=== PATIENT | female | born 1975 | race Asian ===

== ENCOUNTER 2022-11-18 16:10 | Emergency (ER) | payer OTHER ==
[~2022-11-18] VITALS: Ht 170.2 cm; Wt 68.0 kg
[2022-11-18 17:00] VITALS: RESP 20
--- NOTE | 2022-11-18 17:00 | NUR ---
Patient was assisting RN and two other students help with ICU patient. MD was inserting central line and student's instructor was assisting in hubbing line after insertion and MD's sharps were still on the tray when RN Instructor hit the used transducer that was still on the tray.
--- NOTE | 2022-11-18 18:00 | NUR ---
Patient went to lab to have blood drawn and lab came to draw source patient.
--- NOTE | 2022-11-18 18:15 | NUR ---
Patient met with MD to discuss plan and outcome. 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 MD advised patient what to do if results were positive or negative.
--- NOTE | 2022-11-18 19:00 | NUR ---
Sp[place]ke with patient again prior to her leaving for the day. If hospital needs to contact patient, they may reach her at [phone].
--- NOTE | 2022-11-18 19:15 | NUR ---
Patient given written and verbal discharge instructions and verbalizes understanding. ER MD discussed with patient the results and treatment provided. Patient in stable condition. Opportunity for questions provided and answered.
[2022-11-21 03:06] LABS: HEPATITIS A AB, IgM Negative (Negative); HEPATITIS B CORE AB, IgM Negative (Negative); HEPATITIS B SURFACE AG Negative (Negative)
== END 2022-11-18 19:15 | disposition home or self-care (01) ==
LOC: SED 16:10
DX: S61.230A Puncture wound without foreign body of right index finger without damage to nail, initial encounter (principal); Z79.899 Other long term (current) drug therapy; W46.0XXA Contact with hypodermic needle, initial encounter; Y93.89 Activity, other specified; Y92.89 Other specified places as the place of occurrence of the external cause; Y99.8 Other external cause status
CPT/HCPCS: 36415; 80074; 99283